=== PATIENT | female | born 1960 | race Caucasian/White ===

== ENCOUNTER → 2023-07-13 | Outpatient (CLI) | payer BC, SELFPAY ==
--- NOTE | 2023-07-13 07:52 | MRI_ITS ---
EXAM: MR NECK WITHOUT AND WITH INTRAVENOUS CONTRAST CLINICAL INDICATION: SWELLING LEFT SIDE OF FACE TECHNIQUE: Multiplanar and multisequence MR images of the neck without and with intravenous contrast. CONTRAST: 19ml iv Clariscan COMPARISON: No relevant prior studies available. FINDINGS: NASOPHARYNX: Normal. OROPHARYNX: Normal. No significant tonsillar enlargement. No peritonsillar abscess. HYPOPHARYNX: Normal. LARYNX: Normal. Normal epiglottis. RETROPHARYNGEAL SPACE: Normal. SUBMANDIBULAR/PAROTID GLANDS: 8 mm nodule along the superior margin of the left parotid gland suggestive of intraparotid lymph node. Similar nodule noted on the right. Parotid and submandibular glands are otherwise unremarkable. THYROID: No thyroid tissue is identified. BONES/JOINTS: Normal. VASCULATURE: Normal. LYMPH NODES: No cervical lymphadenopathy. Superficial soft tissues: No discrete evidence of cellulitis or abscess. No abnormal contrast enhancement. MRI/Orbit Face Neck W/WO Contrast IMPRESSION: No soft tissue abnormality. Electronically Signed: Sami Villatoro MD at 8:20 EDT ,
[2023-07-13 08:37] LABS: CREATININE FINGERSTICK < 0.9 mg/dL (0.55-1.02); EGFR FINGERSTICK > 60.0000 mL/min (>60)
== END | disposition home or self-care (01) ==
DX: K08.89 Other specified disorders of teeth and supporting structures (principal); R68.84 Jaw pain; R22.0 Localized swelling, mass and lump, head
CPT/HCPCS: 70543; A9575